=== PATIENT | female | born 1945 | race Caucasian/White ===

== ENCOUNTER → 2018-07-18 06:45 | Outpatient (CLI) | payer MEDICARE, OTHER, SELFPAY ==
--- NOTE | 2018-07-18 06:50 | ECHOD_ITS ---
Reason For Study: AFIB/FLUTTER Procedure This was a 2D Doppler, Color Flow transthoracic echocardiogram. The study was technically difficult. Exam performed in department. Left Ventricle Normal LV size. Left ventricular systolic function is normal. The estimated ejection fraction is 65 %. Unable to assess diastolic dysfunction. No regional wall motion abnormalities noted. Right Ventricle Normal RV size. Normal systolic function. Atria The left atrium is mildly enlarged. The right atrium is mildly enlarged. No doppler evidence for ASD. Mitral Valve There is mild mitral annular calcification. Extension of the mitral annular calcification onto the posterior mitral valve leaflet. Trivial mitral valve insufficiency. Tricuspid Valve Normal tricuspid valve. Trivial tricuspid valve insufficiency. Right ventricular systolic pressure estimated to be 27 mmHg. Aortic Valve Trisinus/trileaflet aortic valve. Mild diffuse aortic valve thickening. Mild diffuse aortic valve calcification. Mild aortic stenosis. Pulmonic Valve The pulmonic valve is not well visualized. Trivial pulmonic valve insufficiency. Great Vessels Normal sized aortic root. Pericardium/Pleural No pericardial effusion. MMode/2D Measurements & Calculations LVIDd: 4.5 cm IVSd: 1.6 cm LVOT diam: 2.1 cm LVIDs: 2.9 cm LVPWd: 1.2 cm LVOT area: 3.4 cm2 FS: 35.3 % Ao root diam: 3.4 cm LAV(MOD-bp): 83.8 ml LA A4 area: 25.0 cm2 LAV(MOD-bp) Indexed: 36.5 ml/m2 LAV(MOD-sp2): 77.8 ml LAV(MOD-sp4): 72.2 ml LA dimension(2D): 4.7 cm RA A4 area: 24.7 cm2 Doppler Measurements & Calculations MV E max ld: 110.1 cm/sec Ao V2 max: 213.6 cm/sec LV V1 max: 102.4 cm/sec Ao max P.3 mmHg LV V1 max P.2 mmHg Ao V2 mean: 148.6 cm/sec LV V1 mean P.3 mmHg Ao mean P.7 mmHg LV V1 mean: 72.3 cm/sec Ao V2 VTI: 35.7 cm LV V1 VTI: 18.9 cm MITCHEL(I,D): 1.8 cm2 MITCHEL(V,D): 1.6 cm2 SV(LVOT): 64.1 ml PA V2 max: 80.3 cm/sec TR max ld: 246.9 cm/sec TR max P.4 mmHg Interpretation Summary The study was technically difficult. Left ventricular systolic function is normal. The estimated ejection fraction is 65 %. The left atrium is mildly enlarged. The right atrium is mildly enlarged. There is mild mitral annular calcification. Extension of the mitral annular calcification onto the posterior mitral valve leaflet. Trivial mitral valve insufficiency. Trivial tricuspid valve insufficiency. Mild aortic stenosis. Trivial pulmonic valve insufficiency. Right ventricular systolic pressure estimated to be 27 mmHg. Unable to assess diastolic dysfunction. Ordering Physician: Gilberto Camacho Referring Physician: NO PCP Performed By: Rosita Connor, QUYNH, RVT
--- NOTE | 2018-07-18 09:05 | STRESSREP_ITS ---
Stress Test Report Date: 07/18/2018 Procedure: Pharmacologic stress nuclear imaging study Indications: Atrial fibrillation Consent: Per the patient Procedure: The patient underwent pharmacologic (Regadenoson) evaluation with a peak heart rate of 157 beats per minute (106 predicted maximal heart rate) and a peak blood pressure of 166/80 mmHg. The baseline ECG demonstrated atrial fibrillation; PVCs; nonspecific ST/T wave abnormality. The peak pharmacologic ECG demonstrated continued atrial fibrillation with continued nonspecific ST/T wave abnormality. There were occasional PVCs pretest and during recovery. There was no complaint of chest discomfort during pharmacologic infusion or recovery. The examination was discontinued secondary to completion of protocol. Impression: 1. Pharmacologic (Regadenoson) evaluation 2. Peak pharmacologic ECG with continued atrial fibrillation with continued nonspecific ST/T wave abnormality. 3. There were occasional PVCs pretest and during recovery. 4. Nuclear images pending Myocardial perfusion imaging study: Technique: The patient was injected with 14.6 millicuries of technetium 99m Cardiolite and subsequently rest SPECT Cardiolite nuclear imaging was obtained in the horizontal long, vertical long, and short axis views. The patient underwent pharmacologic (Regadenoson) evaluation with a peak heart rate of 157 beats per minute (106 % percent predicted maximal heart rate) and a peak blood pressure of 166/80 mmHg. The patient was injected with 44.8 millicuries of technetium 99m Cardiolite and subsequently stress SPECT Cardiolite nuclear imaging was obtained in the horizontal long, vertical long, and short axis views. A gated Cardiolite study at peak stress was obtained. Interpretation: Rest and stress SPECT Cardiolite nuclear imaging status post realignment, normalization, and attenuation correction demonstrate at rest the appearance of extracardiac/gastrointestinal tracer uptake near the inferior segments and otherwise relative uniform tracer uptake. Status post stress there is continued evidence of extracardiac/gastrointestinal tracer uptake as well as a notation of diminished tracer uptake in portions of the mid to distal anterior, anteroseptal, anterolateral, and anterior apical segments. There are similar type findings on the resting and stress polar map images. There is end systolic thickening and brightening. The gated Cardiolite study demonstrates myocardial thickening and inward wall motion. The reported LVEF is 72 %. Impression: 1. Rest and stress SPECT Cardiolite nuclear imaging demonstrate myocardial perfusion changes appearing compatible with stress-induced myocardial ischemia involving portions of the mid to distal anterior, anteroseptal, anterolateral, and anterior apical segments, however, an element of shifting soft tissue attenuation/artifact cannot necessarily be excluded. 2. The gated Cardiolite study reports an LVEF of 72 %. This note was generated with [employer] ([employer]ation software. It may contain incorrect words, spelling, and punctuation that were not noted in checking the note before signing.
== END ==
PROVIDERS: Referring Provider Internal Medicine Cardiovascular Disease; Visit Provider Internal Medicine Cardiovascular Disease
DX: I35.0 Nonrheumatic aortic (valve) stenosis (principal); I48.91 Unspecified atrial fibrillation; I48.92 Unspecified atrial flutter; I49.3 Ventricular premature depolarization; R94.31 Abnormal electrocardiogram [ECG] [EKG]
CPT/HCPCS: 78452; 93017; 93306; A9500; A4216; J2785

== ENCOUNTER → 2018-07-25 11:06 | Outpatient (CLI) | payer MEDICARE, OTHER, SELFPAY ==
--- NOTE | 2018-07-25 11:15 | RAD_ITS ---
STUDY: X-RAY CHEST REASON FOR EXAM: Female, 73 years old. atrial fibrillation, pre-heart cath TECHNIQUE: PA and lateral views of the chest. COMPARISON: None. FINDINGS: The lungs are clear and expanded. There is no demonstrated pleural abnormality. There is mild cardiac enlargement. Normal mediastinum and elenita. Normal visualized pulmonary arteries. There is atherosclerotic tortuosity of the aortic arch and descending thoracic aorta. There are diffuse degenerative changes of the visualized thoracic spine. Normal visualized ribs, clavicles, and shoulders. There is no demonstrated abnormality of the visualized soft tissue structures of the upper abdomen. RAD/Chest PA and Lateral IMPRESSION: Cardiomegaly with aortic tortuosity. No evidence of acute failure. No acute intrathoracic process. Electronically Signed: Bing Lopes MD at 10:44 EST , Service support ,
[2018-07-25 12:30] LABS: Hematocrit 49.4 % (37-47); Hemoglobin 15.7 g/dl (12.0-15.0); Mean Corp Hgb Conc 31.8 g/gl (32-36); Mean Corpuscular Hgb 28.9 pg (27.0-32.0); Mean Platelet Vol. 11.2 fl (6.2-12.0); Platelet Count 197 K/mm3 (150-450); RBC Distribution Width CV 14.2 % (11.6-14.6); RBC Distribution Width SD 47.3 fl (35.1-43.9); Red Blood Count 5.43 M/mm3 (4.2-5.4); White Blood Count 8.1 K/mm3 (4.4-11.0)
[2018-07-25 12:33] LABS: Scan Indicated on CBC? Y/N NO
[2018-07-25 12:37] LABS: Partial Thromboplast Time 27.5 Seconds (24.1-36.2); Prothrombin Time (Protime)PT. 12.9 SECONDS (11.7-14.9)
[2018-07-25 12:51] LABS: Anion Gap 7 (5-15); BUN 25 mg/dL (7-18); BUN/Creat Ratio 18.8 RATIO (10-20); Calcium,Total 9.5 mg/dL (8.5-10.1); Chloride 104 mmol/L (98-107); Creatinine, Serum 1.33 mg/dL (0.55-1.02); EST Glomerular Filtration Rate 42 mL/min (>60); Est Glom Filt Rate - Afr Amer 50 mL/min (>60); Glucose 117 mg/dL (74-106); Potassium 4.2 mmol/L (3.5-5.1); Sodium Level 137 mmol/L (136-145)
== END ==
PROVIDERS: Referring Provider Internal Medicine Cardiovascular Disease; Visit Provider Internal Medicine Cardiovascular Disease
DX: I35.0 Nonrheumatic aortic (valve) stenosis (principal); I48.91 Unspecified atrial fibrillation; I48.92 Unspecified atrial flutter; I49.3 Ventricular premature depolarization; R94.39 Abnormal result of other cardiovascular function study
CPT/HCPCS: 36415; 71046; 80048; 85027; 85610; 85730

== ENCOUNTER 2018-08-01 07:58 | Day surgery (SDC) | payer MEDICARE, OTHER, SELFPAY ==
[2018-07-31 08:49] VITALS: BMI 44.5
--- NOTE | 2018-08-01 08:26 | PCM.HP.CAR ---
Problem List (1) Abnormal stress test Status: Acute (2) Nonrheumatic aortic (valve) stenosis Status: Chronic (3) Atrial fibrillation and flutter Status: Chronic (4) Premature ventricular contraction Status: Acute (5) Hyperlipemia Status: Chronic Qualifiers: (6) Essential hypertension Status: Chronic History of Present Illness Date of Admission: 08/01/18 The patient is a 73 year old white female with a past cardiovascular history which has included aortic valve stenosis, atrial fibrillation/flutter, PVCs, hyperlipidemia, hypertension who is now referred for evaluation of an abnormal pharmacologic stress nuclear imaging study concerning for myocardial ischemia for further evaluation with diagnostic cardiac catheterization. The patient was originally evaluated in the outpatient area for cardiovascular consultation on 06/29/2018 to establish care. Since that time she is undergone further evaluation with transthoracic echocardiogram and a pharmacologic stress nuclear imaging study. Her transthoracic echocardiogram has demonstrated the left ventricle to be normal with an LVEF of 65%, mild biatrial enlargement, mild mitral annular calcification, trivial MR/TR, mild aortic valve stenosis, trivial MS, and an estimated RV systolic pressure of 27 mmHg. She underwent a pharmacologic stress nuclear imaging study. There were concerns of stress-induced myocardial ischemia involving portions of the mid to distal anterior, anteroseptal, anterolateral, and anteroapical segments however an element of shifting soft tissue attenuation/artifact cannot necessarily be excluded. Her gated LVEF was 72%. At the present time she states she feels well. She denies any ongoing symptoms of classic angina pectoris or overt episodes of CHF or pulmonary edema. There is been no near syncope or syncope. She continues to be unaware of her atrial dysrhythmia. She had a previous ECG in the outpatient setting. At that time she was in atrial fibrillation with low voltage QRS in the limb leads and nonspecific ST segment abnormality. [] Past Medical History Allergies/Adverse Reactions: Allergies bacitracin [From Neosporin ([id number])] Allergy (Severe, Verified 07/31/18 08:53) Blisters erythromycin base Allergy (Severe, Verified 07/31/18 08:53) Rash neomycin [From Neosporin ([id number])] Allergy (Severe, Verified 07/31/18 08:53) Blisters polymyxin B [From Neosporin ([id number])] Allergy (Severe, Verified 07/31/18 08:53) Blisters sulfamethoxazole [From Bactrim] Allergy (Severe, Verified 07/31/18 08:53) Rash trimethoprim [From Bactrim] Allergy (Severe, Verified 07/31/18 08:53) Rash Home Medications: Ambulatory Orders Medication Instructions Recorded antiarthritic combination no.2 900 900 mg PO DAILY tab 06/28/18 mg tablet cinnamon bark 500 mg capsule 1,000 mg PO DAILY cap 06/28/18 furosemide 20 mg tablet 20 mg PO DAILY 06/28/18 ibuprofen 200 mg tablet 200 mg PO TID-QID PRN 06/28/18 lisinopril 20 mg tablet 20 mg PO DAILY 06/28/18 lutein 20 mg tablet 20 mg PO DAILY 06/28/18 multivit with 1 tab PO DAILY 06/28/18 gqywvtaw-qvhq-RH-lutein 8 mg iron-400 mcg-300 mcg tablet spironolactone 25 mg tablet 25 mg PO DAILY 06/28/18 cholecalciferol (vitamin D3) 1,000 500 unit PO BID tab 06/29/18 unit tablet metoprolol tartrate 50 mg tablet 50 mg PO BID #180 tab 06/29/18 aspirin 81 mg tablet,delayed 81 mg PO DAILY 07/18/18 release clopidogrel 75 mg tablet 75 mg PO DAILY #30 tab 07/25/18 Past Medical History (Chronic Problems): Chronic Problems (Last Updated 07/19/18 @ 09:07 by Inessa Israel) Atrial fibrillation and flutter (Chronic) Hyperlipemia (Chronic) Nonrheumatic aortic (valve) stenosis (Chronic) Essential hypertension (Chronic) Surgical History: - - Status post remote melanoma excision Smoking Status: Never smoker Tobacco Use: Non-smoker Alcohol: None Drugs: None Review of Systems - Review of Systems General: Denies: Fever, Night Sweats, Fatigue Cardiovascular: Denies: Chest Discomfort, Shortness of Breath, Orthopnea, PND, Peripheral Edema, Palpitations, Lightheadedness, Dizziness, Near Syncope, Syncope Respiratory: Denies: Cough, Sputum Production, Hemoptysis Gastrointestinal: Denies: Hematemesis, Hematochezia, Melena Genitourinary: Denies: Dysuria, Hematuria Skin: Denies: Rash Subjectve: This is a pleasant 73-year-old white female who appears to be resting comfortably at the moment in no acute distress. Objective: Weight: 276 lb Body Mass Index (BMI) 44.5 General: Awake, Alert, Oriented x 3, Cooperative, No Acute Distress, Obese HEENT: Atraumatic, Normocephalic, PERRL, EOMI, Sclera Non Icteric Oral: Moist Mucosa Neck: Supple, Good ROM, No JVD Lungs: Clear to auscultation Cardiovascular: Irregular Rhythm, Normal S1, Normal S2 Murmur Murmur: Grade 2/6, Soft, Mid Systolic, LLSB, LVOT, Sternal Notch Vascular: No Carotid Bruits Abdomen: Bowel Sounds Present, Soft, Non Tender, Obese Extremities: No Cyanosis, No Clubbing, No edema Neurological: No Focal Motor or Sensory Deficit Psych/Mental Status: Appropriate, Normal Affect VTE Information - Inpt Only VTE Present on Admission: No VTE Mechan Device Prophylaxis: None VTE Pharm Prophylaxis ordered?: No Reason prophylaxis not ordered:: Treatment Not Indicated Rhythm: As noted above EKG: As noted above ECHO: As noted above Stress Test: As noted above CXR: Preliminary evaluation: No acute cardiopulmonary disease process appreciated: Please see official report Assessment/Plan 1. Abnormal pharmacologic stress nuclear imaging study At the present time it is been recommended patient undergo further evaluation and care. This will include a diagnostic cardiac catheterization. The procedure and risks were discussed with her. She was agreeable to this approach. 2. Aortic valve stenosis Patient does have a history of aortic valve stenosis. An attempt will be made to perform a right/left cardiac catheterization to gain more information about her aortic valve. 3. Atrial fibrillation/flutter The patient will continue rate control therapy. Status post evaluation of her case, as previously noted, consideration will be given to anticoagulant therapy. Over time she can be considered for further evaluation and care with possible attempts at regaining sinus rhythm with medical management and synchronized biphasic DC cardioversion. 4. 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 She will continue medical management and follow-up. 5. Hyperlipidemia The patient will continue further evaluation and care as deemed appropriate. 6. Hypertension The patient will continue medical management with adjustment as needed. Comment: The above was discussed and reviewed with the patient. She was agreeable with the aforementioned evaluation and care plan. This note was generated with [employer] dictation software. It may contain incorrect words, spelling, and punctuation that were not noted in checking the note before signing.
--- NOTE | 2018-08-01 08:30 | HP.PCM_ITS ---
Problem List (1) Abnormal stress test Status: Acute (2) Nonrheumatic aortic (valve) stenosis Status: Chronic (3) Atrial fibrillation and flutter Status: Chronic (4) Premature ventricular contraction Status: Acute (5) Hyperlipemia Status: Chronic Qualifiers: (6) Essential hypertension Status: Chronic History of Present Illness Date of Admission: 08/01/18 The patient is a 73 year old white female with a past cardiovascular history which has included aortic valve stenosis, atrial fibrillation/flutter, PVCs, hyperlipidemia, hypertension who is now referred for evaluation of an abnormal pharmacologic stress nuclear imaging study concerning for myocardial ischemia for further evaluation with diagnostic cardiac catheterization. The patient was originally evaluated in the outpatient area for cardiovascular consultation on 06/29/2018 to establish care. Since that time she is undergone further evaluation with transthoracic echocardiogram and a pharmacologic stress nuclear imaging study. Her transthoracic echocardiogram has demonstrated the left ventricle to be normal with an LVEF of 65%, mild biatrial enlargement, mild mitral annular calcification, trivial MR/TR, mild aortic valve stenosis, trivial FL, and an estimated RV systolic pressure of 27 mmHg. She underwent a pharmacologic stress nuclear imaging study. There were concerns of stress-induced myocardial ischemia involving portions of the mid to distal anterior, anteroseptal, anterolateral, and anteroapical segments however an element of shifting soft tissue attenuation/artifact cannot necessarily be excluded. Her gated LVEF was 72%. At the present time she states she feels well. She denies any ongoing symptoms of classic angina pectoris or overt episodes of CHF or pulmonary edema. There is been no near syncope or syncope. She continues to be unaware of her atrial dysrhythmia. She had a previous ECG in the outpatient setting. At that time she was in atrial fibrillation with low voltage QRS in the limb leads and nonspecific ST segment abnormality. [] Past Medical History Allergies/Adverse Reactions: Allergies bacitracin [From Neosporin ([id number])] Allergy (Severe, Verified 07/31/18 08:53) Blisters erythromycin base Allergy (Severe, Verified 07/31/18 08:53) Rash neomycin [From Neosporin ([id number])] Allergy (Severe, Verified 07/31/18 08:53) Blisters polymyxin B [From Neosporin ([id number])] Allergy (Severe, Verified 07/31/18 08:53) Blisters sulfamethoxazole [From Bactrim] Allergy (Severe, Verified 07/31/18 08:53) Rash trimethoprim [From Bactrim] Allergy (Severe, Verified 07/31/18 08:53) Rash Home Medications: Ambulatory Orders Medication Instructions Recorded antiarthritic combination no.2 900 900 mg PO DAILY tab 06/28/18 mg tablet cinnamon bark 500 mg capsule 1,000 mg PO DAILY cap 06/28/18 furosemide 20 mg tablet 20 mg PO DAILY 06/28/18 ibuprofen 200 mg tablet 200 mg PO TID-QID PRN 06/28/18 lisinopril 20 mg tablet 20 mg PO DAILY 06/28/18 lutein 20 mg tablet 20 mg PO DAILY 06/28/18 multivit with 1 tab PO DAILY 06/28/18 whchbbeh-jwoo-QN-lutein 8 mg iron-400 mcg-300 mcg tablet spironolactone 25 mg tablet 25 mg PO DAILY 06/28/18 cholecalciferol (vitamin D3) 1,000 500 unit PO BID tab 06/29/18 unit tablet metoprolol tartrate 50 mg tablet 50 mg PO BID #180 tab 06/29/18 aspirin 81 mg tablet,delayed 81 mg PO DAILY 07/18/18 release clopidogrel 75 mg tablet 75 mg PO DAILY #30 tab 07/25/18 Past Medical History (Chronic Problems): Chronic Problems (Last Updated 07/19/18 @ 09:07 by Inessa Israel) Atrial fibrillation and flutter (Chronic) Hyperlipemia (Chronic) Nonrheumatic aortic (valve) stenosis (Chronic) Essential hypertension (Chronic) Surgical History: - - Status post remote melanoma excision Smoking Status: Never smoker Tobacco Use: Non-smoker Alcohol: None Drugs: None Review of Systems - Review of Systems General: Denies: Fever, Night Sweats, Fatigue Cardiovascular: Denies: Chest Discomfort, Shortness of Breath, Orthopnea, PND, Peripheral Edema, Palpitations, Lightheadedness, Dizziness, Near Syncope, Syncope Respiratory: Denies: Cough, Sputum Production, Hemoptysis Gastrointestinal: Denies: Hematemesis, Hematochezia, Melena Genitourinary: Denies: Dysuria, Hematuria Skin: Denies: Rash Subjectve: This is a pleasant 73-year-old white female who appears to be resting comfortably at the moment in no acute distress. Objective: Weight: 276 lb Body Mass Index (BMI) 44.5 General: Awake, Alert, Oriented x 3, Cooperative, No Acute Distress, Obese HEENT: Atraumatic, Normocephalic, PERRL, EOMI, Sclera Non Icteric Oral: Moist Mucosa Neck: Supple, Good ROM, No JVD Lungs: Clear to auscultation Cardiovascular: Irregular Rhythm, Normal S1, Normal S2 Murmur Murmur: Grade 2/6, Soft, Mid Systolic, LLSB, LVOT, Sternal Notch Vascular: No Carotid Bruits Abdomen: Bowel Sounds Present, Soft, Non Tender, Obese Extremities: No Cyanosis, No Clubbing, No edema Neurological: No Focal Motor or Sensory Deficit Psych/Mental Status: Appropriate, Normal Affect VTE Information - Inpt Only VTE Present on Admission: No VTE Mechan Device Prophylaxis: None VTE Pharm Prophylaxis ordered?: No Reason prophylaxis not ordered:: Treatment Not Indicated Rhythm: As noted above EKG: As noted above ECHO: As noted above Stress Test: As noted above CXR: Preliminary evaluation: No acute cardiopulmonary disease process appreciated: Please see official report Assessment/Plan 1. Abnormal pharmacologic stress nuclear imaging study At the present time it is been recommended patient undergo further evaluation and care. This will include a diagnostic cardiac catheterization. The procedure and risks were discussed with her. She was agreeable to this approach. 2. Aortic valve stenosis Patient does have a history of aortic valve stenosis. An attempt will be made to perform a right/left cardiac catheterization to gain more information about her aortic valve. 3. Atrial fibrillation/flutter The patient will continue rate control therapy. Status post evaluation of her case, as previously noted, consideration will be given to anticoagulant therapy. Over time she can be considered for further evaluation and care with possible attempts at regaining sinus rhythm with medical management and synchronized biphasic DC cardioversion. 4. 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 She will continue medical management and follow-up. 5. Hyperlipidemia The patient will continue further evaluation and care as deemed appropriate. 6. Hypertension The patient will continue medical management with adjustment as needed. Comment: The above was discussed and reviewed with the patient. She was agreeable with the aforementioned evaluation and care plan. This note was generated with [employer] dictation software. It may contain incorrect words, spelling, and punctuation that were not noted in checking the note before signing.
[2018-08-01 11:00] LABS: Base Excess -2 mmol/L (-2 to +2); Bicarbonate 22.9 mmol/L (22-26); Blood Gas Specimen Type ART; PO2 76 mmHG (75-100); SO2 95 % (95-99); Total Carbon Dioxide 24 mmol/L; pCO2 37.6 mmHg (35-45); pH 7.39 (7.35-7.45)
--- NOTE | 2018-08-01 13:34 | CL.D_ITS ---
Patient Name: AUSTIN HERRERA Study Date: 08/01/2018 Performing: Gilberto Camacho MD Ht: 66.14 inches 168 cm : 1945 Wt: 275.58 lbs 125 kg Age: 73 Gender: female BSA: 2.3 PROCEDURE(S) PERFORMED [id number] CLINICAL PROFILE AND INDICATIONS Indications: Suspected CAD Heart Failure: None Stress/Imaging Stress Test w/SPECT MPI: Yes Result: PositiveStress Test with SPECT MPI: Positive Angina Classification Anginal Classification w/in 2 Weeks: No symptoms CAD Presentations: No Sxs, no angina. CONCLUSIONS [place] Multivessel CAD Mitral Valve Annular Calcification Moderate annular calcification RECOMMENDATIONS Risk factor modification Medical therapy DESCRIPTION OF PROCEDURE The patient arrived to the procedure lab. The risks and benefits of the procedure as well as a full d escription of our services here and current unavailability of surgical backup were fully explained to the patient and/or their significant other prior to the catheterization. The Timeout was completed, verifying the correct patient and procedure. The patient's procedural site was prepped and draped in the usual fashion. Local anesthetic was given subcutaneously to right radial region with Lidocaine 2% . Using a modified Seldinger technique, arterial access was obtained via the right radial artery, a 6 Fr sheath was inserted. Left Coronary Artery selective angiography was performed in multiple views u sing a 5 Fr. 4.0 [place] catheter. Right Coronary Artery selective angiography was then performed in mu ltiple views using a 5 Fr. JR 4 catheter. Right Coronary Artery selective angiography was then perfor med in multiple views using a 5 Fr. JR 4 catheter.The arterial sheath was pulled and a TR Band was applied for hemostasis CORONARY ANGIOGRAPHY DOMINANCE: Right Dominant LEFT HEART ASSESSMENT Left Ventricular Ejection Fraction: Not assessed LEFT MAIN: Angiographically normal LEFT ANTERIOR DECENDING ARTERY: Mild luminal irregularities DISTAL LAD: 10-25 % Stenosis CIRCUMFLEX ARTERY: PROX CIRC: Mild luminal irregularities OM 1: Proximal - Eccentric: 25 % Stenosis RIGHT CORONARY ARTERY: Mild luminal irregularities VALVE FINDINGS: Mitral Valve Annular Calcification Moderate COMPLICATIONS No Complications PROCEDURE MEDICATIONS Fentanyl 50 mcg IV Versed 1 mg IV Fentanyl 50 mcg IV Versed 1 mg IV Fentanyl 50 mcg IV Heparin diluted in 23cc Heparinized saline. Patient given 10cc IA of this solution. 08/01/2018 09:45 :43 Verapamil 2.5mg, Ntg 100mcgs, 2000 units of Heparin diluted in 23cc Heparinized saline. Patient give n 10cc IA of this solution. 08/01/2018 09:45:43 SUMMARY OF HEMODYNAMIC DATA Time AIR REST ECG 08:32:15 ECG 09:31:16 AO 99/63 (79) SA 09:59:18 AO 112/76 (92) 10:24:39 Label % O2 Pres/Loc Time AIR REST AO 95 PV 09:51:30 Signed By Gilberto Camacho MD On 08/01/2018 1:33:56 PM Gilberto Camacho MD
== END 2018-08-01 14:30 | disposition home or self-care (01) ==
LOC: CLSP 07:59
PROVIDERS: Referring Provider Internal Medicine Cardiovascular Disease; Visit Provider Internal Medicine Cardiovascular Disease
DX: I25.10 Atherosclerotic heart disease of native coronary artery without angina pectoris (principal); R94.39 Abnormal result of other cardiovascular function study; I48.2 Chronic atrial fibrillation; I48.92 Unspecified atrial flutter; E78.5 Hyperlipidemia, unspecified; I10 Essential (primary) hypertension; I35.0 Nonrheumatic aortic (valve) stenosis; E66.9 Obesity, unspecified; Z68.41 Body mass index [BMI] 40.0-44.9, adult
CPT/HCPCS: 82803; 93454; 99152; 99153; J7040; Q9967; C1751; C1769; C1894

== ENCOUNTER → 2018-09-21 10:41 | Outpatient (CLI) | payer MEDICARE, OTHER, SELFPAY ==
[2018-08-30 13:58] VITALS: BMI 45.5
[2018-09-21 12:34] LABS: BUN 23 mg/dL (7-18); Creatinine, Serum 1.23 mg/dL (0.55-1.02); Glucose 124 mg/dL (74-106)
[2018-09-21 12:35] LABS: Anion Gap 13 (5-15); BUN/Creat Ratio 18.7 RATIO (10-20); Calcium,Total 9.4 mg/dL (8.5-10.1); Chloride 104 mmol/L (98-107); EST Glomerular Filtration Rate 46 mL/min (>60); Est Glom Filt Rate - Afr Amer 55 mL/min (>60); Potassium 4.3 mmol/L (3.5-5.1); Sodium Level 140 mmol/L (136-145)
== END ==
PROVIDERS: Referring Provider Internal Medicine Cardiovascular Disease; Visit Provider Internal Medicine Cardiovascular Disease
DX: I48.91 Unspecified atrial fibrillation (principal); I48.92 Unspecified atrial flutter
CPT/HCPCS: 36415; 80048

== ENCOUNTER 2018-09-26 10:41 | Day surgery (SDC) | payer MEDICARE, OTHER, SELFPAY ==
[2018-08-30 13:58] VITALS: BMI 45.5
[2018-09-25 14:24] VITALS: BMI 45.5
--- NOTE | 2018-09-26 16:24 | PCM.OP.BLANK ---
Problem List (1) Atrial fibrillation Status: Acute Operative Report Date of Procedure: 09/26/18 Date: 09/26/2017 Procedure: Synchronized biphasic DC cardioversion Indications: Atrial fibrillation Consent: Per the patient Premedications: Per Dr. Long You of pulmonology and critical care medicine with propofol 70 mg IV push total Procedure: Synchronized biphasic DC cardioversion: 200 joules x1: Results: Sinus rhythm Complications: No apparent complications This note was generated using a voice recognition system and there may be incorrect words, spelling or punctuation that were not noted when reviewing the office note prior to saving.
--- NOTE | 2018-09-26 16:57 | OP.PCM_ITS ---
Problem List (1) Atrial fibrillation Status: Acute Qualifiers: Atrial fibrillation type: chronic Qualified Code(s): I48.2 - Chronic atrial fibrillation (2) Atrial flutter Status: Acute (3) Essential hypertension Status: Chronic (4) Hyperlipemia Status: Chronic Qualifiers: Hyperlipidemia type: unspecified Qualified Code(s): E78.5 - Hyperlipidemia, unspecified (5) Nonrheumatic aortic (valve) stenosis Status: Chronic Operative Report Date of Procedure: 09/26/18 - Conscious sedation CONSCIOUS SEDATION REPORT BRIEF HISTORY OF PRESENT ILLNESS: The patient is a 73-year-old female who presented to [facility] for an elective outpatient cardioversion due to underlying atrial fibrillation. The patient reports no PO intake since midnight. The patient does not have a history of obstructive sleep apnea. The patient reports no history of smoking and COPD. The patient denies any recent constitutional symptoms such as fevers, chills, nausea or vomiting. The patient denies previous anesthetic complications. PHYSICAL EXAMINATION: VITAL SIGNS: Reviewed and were acceptable. GENERAL: The patient is a female, in no apparent distress, speaking in full sentences. HEENT: Normocephalic, atraumatic. Mucous membranes are moist and pink. Good mouth opening noted. Trachea is midline. Good neck mobility. MP III CHEST: S1, S2 irregularly irregular. No murmurs, rubs or gallops were noted. LUNGS: Clear to auscultation bilaterally without appreciable wheezes, rales or rhonchi. ABDOMEN: Soft, nontender, nondistended. Positive bowel sounds. EXTREMITIES: There is no clubbing, cyanosis or edema. ASA Class: II DESCRIPTION OF PROCEDURE: After confirmation of informed consent, the patient's anesthesia plan was reviewed in detail. Propofol was chosen. Risks and benefits were reviewed and the patient agreed to proceed. At 12:59 PM, the patient was given 40 mg of propofol. The patient required a total of 70 mg of propofol throughout the procedure to achieve appropriate sedation. The patient achieved an appropriate level of sedation and received 1 attempt s synchronized cardioversion, at [address] Camacho at the bedside. This was successful in achieving normal sinus rhythm. The patient was monitored until 1:12 PM, at which time the patient reached their baseline mental status and function. The patient tolerated the procedure well. COMPLICATIONS: None ESTIMATED BLOOD LOSS: None RECOMMENDATIONS: Okay to recover in usual fashion. Code Visit [id number]: Other Procedure See Report - 49870 -13 minutes of conscious sedation
== END 2018-09-26 14:05 | disposition home or self-care (01) ==
LOC: CLSP 10:44
PROVIDERS: Referring Provider Internal Medicine Cardiovascular Disease; Visit Provider Internal Medicine Cardiovascular Disease
DX: I48.91 Unspecified atrial fibrillation (principal); I48.92 Unspecified atrial flutter; E78.5 Hyperlipidemia, unspecified; I10 Essential (primary) hypertension; I35.0 Nonrheumatic aortic (valve) stenosis; R05 Cough; I25.10 Atherosclerotic heart disease of native coronary artery without angina pectoris
CPT/HCPCS: 92960; 93005; J7040

== ENCOUNTER → 2018-10-03 11:19 | Outpatient (CLI) | payer MEDICARE, OTHER, SELFPAY ==
[2018-09-25 14:24] VITALS: BMI 45.5
== END ==
PROVIDERS: Referring Provider Internal Medicine Cardiovascular Disease; Visit Provider Internal Medicine Cardiovascular Disease
DX: I49.3 Ventricular premature depolarization (principal); I48.91 Unspecified atrial fibrillation; I48.92 Unspecified atrial flutter
CPT/HCPCS: 93225; 93226

== ENCOUNTER → 2019-02-16 10:41 | Outpatient (CLI) | payer MEDICARE, OTHER, SELFPAY ==
[2019-02-14 11:05] VITALS: BMI 45.5
== END ==
PROVIDERS: Referring Provider Internal Medicine Cardiovascular Disease; Visit Provider Internal Medicine Cardiovascular Disease
DX: I48.91 Unspecified atrial fibrillation (principal)
CPT/HCPCS: 93225; 93226

== ENCOUNTER → 2020-11-25 12:37 | Outpatient (CLI) | payer MEDICARE, OTHER, SELFPAY ==
[2020-11-12 10:02] VITALS: BMI 51.0
--- NOTE | 2020-11-25 12:40 | ECHOCS_ITS ---
Reason For Study: MURMUR Procedure This was a 2D Doppler, Color Flow transthoracic echocardiogram. The study was technically difficult. Contrast injection was performed. Exam performed in department. Left Ventricle Normal LV size. Left ventricular systolic function is normal. The estimated ejection fraction is 60 %. Unable to assess diastolic dysfunction. No regional wall motion abnormalities noted. Right Ventricle Normal RV size. Normal systolic function. Atria The left atrium is moderately enlarged. The right atrium is mildly enlarged. No doppler evidence for ASD. Mitral Valve There is mild to moderate mitral annular calcification. Extension of the mitral annular calcification onto the posterior mitral valve leaflet. Trivial mitral valve insufficiency. Tricuspid Valve Normal tricuspid valve. Trivial tricuspid valve insufficiency. Right ventricular systolic pressure estimated to be 26 mmHg. Aortic Valve The aortic valve is not well visualized. Mild diffuse aortic valve thickening. Mild diffuse aortic valve calcification. Mild aortic stenosis. Pulmonic Valve The pulmonic valve is not well visualized. Great Vessels Normal sized aortic root. Pericardium/Pleural No pericardial effusion. Medication 22 gauge I.V. with prn adaptor inserted into right arm. Diluted definity 6ml given slow IV push to enhance endocardial definition. MMode/2D Measurements & Calculations LVIDd: 4.1 cm IVSd: 1.2 cm LVOT diam: 2.0 cm LVIDs: 2.9 cm LVPWd: 1.0 cm RVDd: 3.9 cm FS: 29.4 % LVOT area: 3.1 cm2 Ao root diam: 3.3 cm LAV(MOD-bp): 46.6 ml LVAd ap4: 24.0 cm2 LAV(MOD-bp) Indexed: 19.4 ml/m2 EDV(MOD-sp4): 63.3 ml LAV(MOD-sp2): 30.6 ml EDV(sp4-el): 67.5 ml LAV(MOD-sp4): 57.1 ml LVAs ap4: 14.5 cm2 ESV(MOD-sp4): 28.9 ml ESV(sp4-el): 29.9 ml EF(MOD-sp4): 54.3 % EF(sp4-el): 55.7 % SV(MOD-sp4): 34.4 ml SV(sp4-el): 37.6 ml LA A4 area: 22.3 cm2 LA dimension(2D): 3.7 cm RA A4 area: 20.3 cm2 Doppler Measurements & Calculations MV E max ld: 96.0 cm/sec Ao V2 max: 207.1 cm/sec LV V1 max: 77.3 cm/sec Ao max P.2 mmHg LV V1 max P.4 mmHg Ao V2 mean: 156.7 cm/sec LV V1 mean P.4 mmHg Ao mean P.0 mmHg LV V1 mean: 55.2 cm/sec Ao V2 VTI: 42.2 cm LV V1 VTI: 17.6 cm MITCHEL(I,D): 1.3 cm2 MITCHEL(V,D): 1.2 cm2 SV(LVOT): 55.2 ml PA V2 max: 60.6 cm/sec TR max ld: 240.6 cm/sec TR max P.1 mmHg Interpretation Summary The study was technically difficult. Contrast injection was performed. Left ventricular systolic function is normal. The estimated ejection fraction is 60 %. The left atrium is moderately enlarged. The right atrium is mildly enlarged. There is mild to moderate mitral annular calcification. Extension of the mitral annular calcification onto the posterior mitral valve leaflet. Trivial mitral valve insufficiency. Trivial tricuspid valve insufficiency. Mild aortic stenosis. Right ventricular systolic pressure estimated to be 26 mmHg. Unable to assess diastolic dysfunction. Ordering Physician: Gilberto Camacho Referring Physician: Gilberto Camacho Performed By: Jia Vanessa, QUYNH
== END ==
PROVIDERS: Referring Provider Internal Medicine Cardiovascular Disease; Visit Provider Internal Medicine Cardiovascular Disease
DX: R01.1 Cardiac murmur, unspecified (principal); I35.0 Nonrheumatic aortic (valve) stenosis
CPT/HCPCS: 93306; Q9957; A4216; C8929

== ENCOUNTER → 2021-05-11 10:56 | Outpatient (CLI) | payer MEDICARE, OTHER, SELFPAY ==
[2021-05-11 11:26] LABS: Absolute Lymphocyte Count 1.43 X10^3/uL (0.83-4.51); Absolute Neutrophil Count 6.4 X10^3/uL (2.0-7.7); Basophil# 0.06 X10^3/uL; Basophil% 0.7 % (0-1); Eosinophils% 1.2 % (0-5); Hematocrit 50.3 % (37-47); Hemoglobin 15.7 g/dL (12.0-15.0); Lymphocyte # 1.43 X10^3/ul (0.83-4.51); Lymphocyte % 16.8 % (19-41); Mean Corp Hgb Conc 31.2 g/dL (32-36); Mean Corpuscular Hgb 29.3 pg (27.0-32.0); Mean Platelet Vol. 10.7 fl (6.2-12.0); Monocyte# 0.49 X10^3/uL; Monocyte% 5.8 % (0-10); NRBC Flagged by Analyzer 0 % (0-5); Neutrophil # 6.38 X10^3/uL (2.7-7.7); Platelet Count 216 K/mm3 (150-450); RBC Distribution Width CV 13.7 % (11.6-14.6); RBC Distribution Width SD 47.7 fl (35.1-43.9); Red Blood Count 5.35 M/mm3 (4.2-5.4); White Blood Count 8.5 K/mm3 (4.4-11.0)
[2021-05-11 11:49] LABS: BNP,B-Type NATRIURETIC PEPTIDE 50.8 pg/mL (0-100)
[2021-05-11 11:54] LABS: Anion Gap 4 (5-15); BUN 22 mg/dL (7-18); BUN/Creat Ratio 16.7 RATIO (10-20); Calcium,Total 10.1 mg/dL (8.5-10.1); Chloride 104 mmol/L (98-107); Creatinine, Serum 1.32 mg/dL (0.55-1.02); EST Glomerular Filtration Rate 42 mL/min (>60); Est Glom Filt Rate - Afr Amer 50 mL/min (>60); Glucose 186 mg/dL (74-106); Potassium 4.4 mmol/L (3.5-5.1); Sodium Level 137 mmol/L (136-145)
== END ==
PROVIDERS: Referring Provider Nurse Practitioner Family; Visit Provider Nurse Practitioner Family
DX: R06.00 Dyspnea, unspecified (principal); I25.10 Atherosclerotic heart disease of native coronary artery without angina pectoris; I48.91 Unspecified atrial fibrillation; I48.92 Unspecified atrial flutter; I35.0 Nonrheumatic aortic (valve) stenosis; I10 Essential (primary) hypertension; I49.3 Ventricular premature depolarization
CPT/HCPCS: 36415; 80048; 83880; 85025

== ENCOUNTER 2022-03-18 14:22 | Emergency (ER) | payer MEDICARE, OTHER, SELFPAY ==
[2022-03-18 14:23] VITALS: BP 175/105; PULSE 106; RESP 20; TEMP 35.9; O2SAT 88; BMI 47.7
[2022-03-18 14:33] VITALS: O2SAT 97
[2022-03-18 14:36] VITALS: BP 144/91; PULSE 115; RESP 20; TEMP 35.9; O2SAT 98
--- NOTE | 2022-03-18 14:41 | EKG12_ITS ---
Test Reason : SOB Blood Pressure : / mmHG Vent. Rate : 105 BPM Atrial Rate : 227 BPM P-R Int : 000 ms QRS Dur : 072 ms QT Int : 332 ms P-R-T Axes : 000 074 056 degrees QTc Int : 438 ms Atrial fibrillation Nonspecific ST abnormality Abnormal ECG Confirmed by SG MANCERA, ALINE ([id number]), online editor ALESSANDRO MATAMOROS ([id number]) on 03/23/2022 10:16:58 AM Referred By: JEANNIE Confirmed By:ALINE BETTENCOURT MD
--- NOTE | 2022-03-18 14:41 | EX.ED.DYSGE1 ---
HPI <LEILANI Russ - Last Filed: 03/18/22 15:01> History of Present Illness Chief Complaint: Shortness of Breath Narrative Narrative: 77-year-old female with history of atrial fibrillation on Eliquis, hypertension, hyperlipidemia, on Lasix presents to the emergency department with 4 days of generalized fatigue, increased shortness of breath, cough. Patient states that on Tuesday and Tuesday of this last week he had fever she had fever and chills, today, she did not have any fever or chills however she has a cough and increased shortness of breath. Patient states last evening she had difficulty sleeping due to being short of breath. Patient was 88% on arrival here after walking. Patient denies any nausea or vomiting. PFS <LEILANI Russ - Last Filed: 03/18/22 15:01> [facility] Medical History (Updated 03/18/22 @ 16:[address] Ren Whitt MD) Abnormal stress test Atherosclerotic heart disease of three affiliated coronary artery without angina pectoris Atrial fibrillation and flutter Essential hypertension History of glaucoma Hyperlipemia Nonrheumatic aortic (valve) stenosis Premature atrial contraction Premature ventricular contraction Home Medications antiarthritic combination no.2 900 mg tablet (glucosamine-chondroitin) 900 mg PO DAILY 06/28/18 [History Last Taken Unknown] ibuprofen 200 mg tablet 200 mg PO TID-QID PRN Pain 06/28/18 [History Last Taken Unknown] lutein 20 mg tablet 20 mg PO DAILY 06/28/18 [History Last Taken Unknown] multivit with [id number] 8 mg iron-400 mcg-300 mcg tablet (Centrum Silver Women) 1 tab PO DAILY 06/28/18 [History Last Taken Unknown] cholecalciferol (vitamin D3) 25 mcg (1,000 unit) tablet 500 unit PO BID 06/29/18 [History Last Taken Unknown] aspirin 81 mg tablet,delayed release (Adult Low Dose Aspirin) 81 mg PO DAILY 07/18/18 [History Last Taken 09/26/18] omega-3 fatty acids 1,000 mg capsule (Fish Oil Concentrate) 1,000 mg PO BID 08/30/18 [History Last Taken Unknown] furosemide 20 mg tablet 20 mg PO DAILY #90 tabs 12/29/21 [Rx Last Taken Unknown] lisinopril 20 mg tablet 20 mg PO DAILY #90 tabs 12/29/21 [Rx Last Taken Unknown] metoprolol tartrate 50 mg tablet 50 mg PO BID #180 tabs 12/29/21 [Rx Last Taken Unknown] spironolactone 25 mg tablet 25 mg PO DAILY #90 tabs 12/29/21 [Rx Last Taken Unknown] albuterol sulfate 90 mcg/actuation aerosol inhaler (Ventolin HFA) 1 - 2 puff inhalation Q4H PRN PRN Wheezing ##1 03/18/22 [Rx Last Taken Unknown] apixaban 5 mg tablet (Eliquis) 2.5 mg PO BID #60 tabs 03/18/22 [Rx Last Taken Unknown] nirmatrelvir 300 mg (150 mg x 2)-ritonavir 100 mg tablet (EUA) (Paxlovid 300 mg () See Rx Instructions PO .COMPLEX #30 tabs 03/18/22 [Rx Last Taken Unknown] Allergy/AdvReac Type Severity Reaction Status Date / Time bacitracin Allergy Severe Blisters Verified 03/18/22 14:23 [From Neosporin ([id number])] erythromycin base Allergy Severe Rash Verified 03/18/22 14:23 neomycin Allergy Severe Blisters Verified 03/18/22 14:23 [From Neosporin ([id number])] polymyxin B Allergy Severe Blisters Verified 03/18/22 14:23 [From Neosporin ([id number])] sulfamethoxazole Allergy Severe Rash Verified 03/18/22 14:23 [From Bactrim] trimethoprim [From Bactrim] Allergy Severe Rash Verified 03/18/22 14:23 Family History Mother Congestive heart failure Father CAD (coronary artery disease) Myocardial infarction Surgical History History of hysterectomy History of left heart catheterization (LHC) (~08/01/18) History of melanoma excision Social History Smoking Status: Never smoker alcohol intake: never substance use type: does not use caffeine: No ROS <LEILANI Russ - Last Filed: 03/18/22 15:01> ROS ED ROS Narrative Constitutional: Negative for weight loss, weakness. Positive fever and chills Eyes: Negative for vision loss, vision change, double vision ENT: Negative for any sore throat, ear pain, congestion Cardiovascular: Negative for any chest pain, tightness, palpitations Respiratory: Negative for any sputum production, hemoptysis. positive for cough, dyspnea, dyspnea on exertion, orthopnea Gastrointestinal: Negative for any abdominal pain, nausea, vomiting, diarrhea, constipation, blood in stool, blood in vomit : Negative for any urinary frequency, dysuria, retention, blood in urine Muscle skeletal: Negative for any muscle joint pain, stiffness, myalgias, arthralgias, neck pain, back pain Neurological: Negative for any headache, syncope, numbness or tingling, dizziness Skin: Negative for any rashes, lumps, itching, abrasions, lacerations Psychiatric: Negative for any depression, anxiety, stress, suicidal ideation, homicidal ideation Hematologic: Negative for any easy bruising, excessive bruising, easy bleeding Allergies: Negative for any eczema, hives, rash EXAM <LEILANI Russ - Last Filed: 03/18/22 15:01> Physical Exam Narrative Exam Narrative: Vital signs reviewed. Patient was hypoxic in triage 88 % on exertion. Patient resting in bed on room air was 98% HEET: Head normocephalic atraumatic, TMs clear bilaterally. Posterior pharynx is clear, moist mucous membranes. Nares clear bilaterally. Neck: Supple with no lymphadenopathy or tenderness. No signs of meningismus, negative jolt sign. Cardiac: Regular rate and rhythm no murmurs gallops or rubs, equal peripheral pulses bilaterally. Respiratory: Lungs clear to auscultation bilaterally. No chest tenderness. Abdomen: Soft, nontender, nondistended. No abdominal bruit or pulsatile masses. No hepatosplenomegaly Extremities: No peripheral edema, no signs of gross trauma or deformity. Active full range of motion of all extremities. Neuro: Cranial nerves II through XII intact, no focal neurological deficits. Skin: Clean dry and intact with no rash, purpura, petechiae, vesicles or pustules. Backs/flank: No CVA tenderness, no midline spinal tenderness, no deformity. Psych: Normal mood and affect. No SI, HI or acute psychosis. Const Vital Signs: 03/18/22 14:23 03/18/22 14:33 03/18/22 14:36 Temperature 96.6 F L 96.6 F L Temperature Source Temporal Temporal Pulse Rate 106 H 115 H Respiratory Rate 20 H 20 H Respiratory Effort Normal Non-Labored Respiratory Pattern Normal Blood Pressure 175/105 H 144/91 H Blood Pressure Mean 128 108 Pulse Ox 88 98 Oxygen Delivery Method Room Air Room Air Room Air 03/18/22 16:20 Temperature Temperature Source Pulse Rate 98 Respiratory Rate 18 Respiratory Effort Respiratory Pattern Blood Pressure 122/82 H Blood Pressure Mean 95 Pulse Ox 95 Oxygen Delivery Method Room Air <Dr. Ren Whitt MD - Last Filed: 03/18/22 16:56> Physical Exam Const Vital Signs: 03/18/22 14:23 03/18/22 14:33 03/18/22 14:36 Temperature 96.6 F L 96.6 F L Temperature Source Temporal Temporal Pulse Rate 106 H 115 H Respiratory Rate 20 H 20 H Respiratory Effort Normal Non-Labored Respiratory Pattern Normal Blood Pressure 175/105 H 144/91 H Blood Pressure Mean 128 108 Pulse Ox 88 98 Oxygen Delivery Method Room Air Room Air Room Air 03/18/22 16:20 Temperature Temperature Source Pulse Rate 98 Respiratory Rate 18 Respiratory Effort Respiratory Pattern Blood Pressure 122/82 H Blood Pressure Mean 95 Pulse Ox 95 Oxygen Delivery Method Room Air MDM <LEILANI Russ - Last Filed: 03/18/22 15:01> [facility] Lab Data Labs: Laboratory Results - last 24 hr 03/18/22 03/18/22 03/18/22 14:55 14:55 14:55 WBC 4.5 RBC 5.34 Hgb 15.7 H Hct 49.3 H MCV 92.3 MCH 29.4 MCHC 31.8 L RDW Std Deviation 45.9 H RDW Coeff of Tavo 13.5 Plt Count 147 L MPV 10.7 Immature Gran % (Auto) 0.400 Neut % (Auto) 71.1 H Lymph % (Auto) 18.1 L Linn % (Auto) 8.9 Eos % (Auto) 1.1 Baso % (Auto) 0.4 Absolute Neuts (auto) 3.2 Absolute Lymphs (auto) 0.81 L Nucleated RBC % 0 Sodium 136 Potassium 4.2 Chloride 104 Carbon Dioxide 25.0 Anion Gap 7 BUN 17 Creatinine 1.42 H Estim Creat Clear Calc 30.33 Est GFR (MDRD) Af Amer 46 L Est GFR (MDRD) Non-Af 38 L BUN/Creatinine Ratio 12.0 Glucose 233 H Calcium 9.5 Troponin I High Sens 5 B-Natriuretic Peptide 37.7 Radiography Diagnostic Testing: Clinical Impression(s) from Imaging Studies Chest X-Ray 03/18/22 15:08 IMPRESSION: Mild cardiomegaly. The lungs are clear. Electronically Signed: Demetrio Sauer MD at 15:22 EDT , EKG Atrial fibrillation: Attestation: I personally reviewed and interpreted this EKG as follows: Interpretation: Atrial Fibrillation Comments: Atrial fibrillation heart rate 105 bpm, QRS duration 72 ms, no acute ST elevation, no acute infarct noted <Dr. Ren Whitt MD - Last Filed: 03/18/22 16:56> MDM MDM Narrative Medical decision making narrative: Seen and evaluated independently and in conjunction with [employer]. Agree with notes above unless documented otherwise. Patient with dyspnea for the past 3 to 4 days, nonproductive cough, initially fevers and chills but no longer having any of that, but malaised. She sleeps in a recliner so unknown if she has orthopnea but exertion definitely makes her dyspnea worse. No chest pain but she does have some mid back pain, nonpleuritic. No new leg swelling. History of A. fib that was asymptomatic, she is irregular now and in A. fib without any acute injury pattern on the EKG. She has had no palpitations or racing heartbeat in the last several days to suggest that A. fib is primarily causing this. Work-up will include cardiac etiologies as well as infectious. Work-up is consistent with COVID and is otherwise essentially normal, including the chest x-ray. On the initial vital signs her pulse ox was reading 88%, but throughout her stay in the ED, she was not hypoxic satting well into the 90s, 95 to 98%. For this reason we ambulated her, she was only very mildly dyspneic and she did not saturate below 94%. Cardiac work-up is negative/unremarkable. For these reasons I think she can be discharged home to quarantine and continue washing pulse oximetry if she can get a meter, she has risk being cardiac and hypertension and obesity and her age. She is also unvaccinated. She therefore qualifies for Paxlovid, and needs to decrease her apixaban dose to 2.5 mg twice daily according to the [place] interaction database. Lab Data Attestation: I reviewed the patient's lab results. Labs: Laboratory Results - last 24 hr 03/18/22 03/18/22 03/18/22 14:55 14:55 14:55 WBC 4.5 RBC 5.34 Hgb 15.7 H Hct 49.3 H MCV 92.3 MCH 29.4 MCHC 31.8 L RDW Std Deviation 45.9 H RDW Coeff of Tavo 13.5 Plt Count 147 L MPV 10.7 Immature Gran % (Auto) 0.400 Neut % (Auto) 71.1 H Lymph % (Auto) 18.1 L Linn % (Auto) 8.9 Eos % (Auto) 1.1 Baso % (Auto) 0.4 Absolute Neuts (auto) 3.2 Absolute Lymphs (auto) 0.81 L Nucleated RBC % 0 Sodium 136 Potassium 4.2 Chloride 104 Carbon Dioxide 25.0 Anion Gap 7 BUN 17 Creatinine 1.42 H Estim Creat Clear Calc 30.33 Est GFR (MDRD) Af Amer 46 L Est GFR (MDRD) Non-Af 38 L BUN/Creatinine Ratio 12.0 Glucose 233 H Calcium 9.5 Troponin I High Sens 5 B-Natriuretic Peptide 37.7 Radiography Chest X-Ray - ED: 1 View, Read by ED Physician, No Acute Disease and No Infiltrates Diagnostic Testing: Clinical Impression(s) from Imaging Studies Chest X-Ray 03/18/22 15:08 IMPRESSION: Mild cardiomegaly. The lungs are clear. Electronically Signed: Demetrio Sauer MD at 15:22 EDT , EKG Atrial fibrillation: Attestation: I personally reviewed and interpreted this EKG as follows: Discharge Plan Triage Chief Complaint: Shortness of Breath ED Midlevel Provider: Gilberto Morales ED Provider: Ren Whitt Dx/Rx/DC Orders Clinical Impression: COVID-19, Atrial fibrillation, Dyspnea Instructions: Coronavirus Disease 2019 (COVID-19): Caring for Yourself or Others Prescriptions: New albuterol sulfate [Ventolin HFA] 90 mcg/actuation HFA aerosol inhaler 1 - 2 puff inhalation Q4H PRN PRN (Reason: Wheezing) Qty: 1 0RF Paxlovid (EUA) 300 mg (150 mg x 2)-100 mg tablet See Rx Instructions .ROUTE .COMPLEX Qty: 30 0RF Rx Instructions: take TWO 150 mg tablets of nirmatrelvir with ONE 100 mg tablet of ritonavir twice daily for 5 days Continued cholecalciferol (vitamin D3) 1,000 unit tablet 500 unit PO BID lutein 20 mg tablet 20 mg PO DAILY glucosamine-chondroitin 900 mg tablet 900 mg PO DAILY Centrum Silver Women 8 mg iron-400 mcg-300 mcg tablet 1 tab PO DAILY ibuprofen 200 mg tablet 200 mg PO TID-QID PRN (Reason: Pain) omega-3 fatty acids 1,000 mg capsule 1,000 mg capsule 1,000 mg PO BID aspirin [Adult Low Dose Aspirin] 81 mg tablet,delayed release (DR/EC) 81 mg PO DAILY lisinopril 20 mg tablet 20 mg PO DAILY Qty: 90 3RF furosemide 20 mg tablet 20 mg PO DAILY Qty: 90 3RF spironolactone 25 mg tablet 25 mg PO DAILY Qty: 90 3RF metoprolol tartrate 50 mg tablet 50 mg PO BID Qty: 180 4RF Changed Eliquis 5 mg tablet 2.5 mg PO BID Qty: 60 12RF Rx Instructions: May go back to regular dose (5mg 2x/day) starting on March 26, 2022 Primary Care Provider: Care Physician,No Primary Referrals: Care Physician,No Primary [Primary Care Provider] - Doctor,Your [STAFF PHYSICIAN] - As Needed Activity Restrictions/Additional Instructions: Try to get a home portable pulse oximeter and closely watch your oxygen levels periodically. If you stay below 90% for more than a minute or so, and/or you are feeling like your breathing is getting worse, return to the emergency department for further evaluation. Disposition Disposition: Home, Self Care
[2022-03-18 15:06] LABS: Absolute Lymphocyte Count 0.81 X10^3/uL (0.83-4.51); Absolute Neutrophil Count 3.2 X10^3/uL (2.0-7.7); Basophil# 0.02 X10^3/uL; Basophil% 0.4 % (0-1); Eosinophil# 0.05 X10^3/uL; Eosinophils% 1.1 % (0-5); Hematocrit 49.3 % (37-47); Hemoglobin 15.7 g/dL (12.0-15.0); Lymphocyte # 0.81 X10^3/ul (0.83-4.51); Lymphocyte % 18.1 % (19-41); Mean Corp Hgb Conc 31.8 g/dL (32-36); Mean Corpuscular Hgb 29.4 pg (27.0-32.0); Mean Corpuscular Volume 92.3 fL (81-99); Mean Platelet Vol. 10.7 fl (6.2-12.0); Monocyte% 8.9 % (0-10); NRBC Flagged by Analyzer 0 % (0-5); Neutrophil # 3.17 X10^3/uL (2.7-7.7); Neutrophil % 71.1 % (47-70); Platelet Count 147 K/mm3 (150-450); RBC Distribution Width CV 13.5 % (11.6-14.6); RBC Distribution Width SD 45.9 fl (35.1-43.9); Red Blood Count 5.34 M/mm3 (4.2-5.4); White Blood Count 4.5 K/mm3 (4.4-11.0)
--- NOTE | 2022-03-18 15:08 | RAD_ITS ---
STUDY: X-RAY CHEST REASON FOR EXAM: Female, 77 years old. Shortness of breath. TECHNIQUE: Single AP portable view of the chest. COMPARISON: Comparison is made with prior study dated 07/25/2018. FINDINGS: EKG electrodes are seen. The lungs are clear and expanded. There is no demonstrated pleural abnormality. There is mild cardiac enlargement. Normal mediastinum and elenita. Normal visualized pulmonary arteries. There is atherosclerotic calcification of the aortic arch with tortuosity. There are diffuse degenerative changes of the visualized thoracic spine. Normal visualized ribs, clavicles, and shoulders. There is no demonstrated abnormality of the visualized soft tissue structures of the upper abdomen. RAD/Chest 1 View (Portable) IMPRESSION: Mild cardiomegaly. The lungs are clear. Electronically Signed: Demetrio Sauer MD at 15:22 EDT ,
[2022-03-18 15:24] LABS: Anion Gap 7 (5-15); BUN 17 mg/dL (7-18); Calcium,Total 9.5 mg/dL (8.5-10.1); Chloride 104 mmol/L (98-107); Creatinine, Serum 1.42 mg/dL (0.55-1.02); EST Glomerular Filtration Rate 38 mL/min (>60); Est Glom Filt Rate - Afr Amer 46 mL/min (>60); Estimated Creatinine Clearance 30.33 ml/min; Glucose 233 mg/dL (74-106); Potassium 4.2 mmol/L (3.5-5.1); Sodium Level 136 mmol/L (136-145); Troponin-I HS 5 pg/mL (3.0-54.0)
[2022-03-18 15:25] LABS: BNP,B-Type NATRIURETIC PEPTIDE 37.7 pg/mL (0-100)
[2022-03-18 16:20] VITALS: BP 122/82; PULSE 98; RESP 18; O2SAT 95
[2022-03-18 16:29] VITALS: O2SAT 95
[2022-03-18 17:05] VITALS: BP 126/106; PULSE 98; RESP 20; O2SAT 92
== END 2022-03-18 17:06 | disposition home or self-care (01) ==
PROVIDERS: Nurse Practitioner; Emergency Provider Emergency Medicine; Visit Provider Emergency Medicine
DX: U07.1 COVID-19 (principal); I48.91 Unspecified atrial fibrillation; I10 Essential (primary) hypertension; E78.5 Hyperlipidemia, unspecified; I25.10 Atherosclerotic heart disease of native coronary artery without angina pectoris; R06.00 Dyspnea, unspecified; Z79.01 Long term (current) use of anticoagulants; R06.02 Shortness of breath
CPT/HCPCS: 71045; 80048; 83880; 84484; 85025; 87428; 93005; 99284; A4216

== ENCOUNTER → 2022-06-14 | Outpatient (CLI) | payer MEDICARE, OTHER, SELFPAY | END | disposition home or self-care (01) | LOC: PSN 08:31 | PROVIDERS: Referring Provider Internal Medicine Cardiovascular Disease; Visit Provider Internal Medicine Cardiovascular Disease | DX: I48.91 Unspecified atrial fibrillation (principal); I48.92 Unspecified atrial flutter | CPT/HCPCS: 93225; 93226 ==

== ENCOUNTER → 2022-11-15 | Outpatient (CLI) | payer MEDICARE, OTHER, SELFPAY ==
[2022-11-15 10:57] LABS: Absolute Lymphocyte Count 1.49 X10^3/uL (0.83-4.51); Absolute Neutrophil Count 8.3 X10^3/uL (2.0-7.7); Basophil# 0.05 X10^3/uL; Basophil% 0.5 % (0-1); Eosinophil# 0.12 X10^3/uL; Eosinophils% 1.1 % (0-5); Hematocrit 49.1 % (37-47); Hemoglobin 15.6 g/dL (12.0-15.0); Lymphocyte # 1.49 X10^3/ul (0.83-4.51); Lymphocyte % 14.2 % (19-41); Mean Corp Hgb Conc 31.8 g/dL (32-36); Mean Corpuscular Hgb 29.8 pg (27.0-32.0); Mean Corpuscular Volume 93.7 fL (81-99); Mean Platelet Vol. 10.6 fl (6.2-12.0); Monocyte# 0.54 X10^3/uL; Monocyte% 5.1 % (0-10); NRBC Flagged by Analyzer 0 % (0-5); Neutrophil # 8.28 X10^3/uL (2.7-7.7); Neutrophil % 78.7 % (47-70); Platelet Count 226 K/mm3 (150-450); RBC Distribution Width CV 13.1 % (11.6-14.6); RBC Distribution Width SD 44.8 fl (35.1-43.9); Red Blood Count 5.24 M/mm3 (4.2-5.4); White Blood Count 10.5 K/mm3 (4.4-11.0)
[2022-11-15 11:23] LABS: BNP,B-Type NATRIURETIC PEPTIDE 55.4 pg/mL (0-100)
[2022-11-15 11:34] LABS: AST(SGOT) 18 U/L (15-37); Alanine Aminotransfer ALT/SGPT 34 U/L (13-56); Albumin, Serum 3.4 g/dL (3.2-5.0); Alkaline Phosphatase 89 U/L (45-117); Anion Gap 8 (5-15); BUN 32 mg/dL (7-18); BUN/Creat Ratio 17.3 RATIO (10-20); Bilirubin, Direct 0.16 mg/dL (0.00-0.30); Calcium,Total 10.2 mg/dL (8.5-10.1); Chloride 99 mmol/L (98-107); Cholesterol 231 mg/dL (200); Creatinine, Serum 1.85 mg/dL (0.55-1.02); EST Glomerular Filtration Rate 28 mL/min (>60); Est Glom Filt Rate - Afr Amer 34 mL/min (>60); Globulin 4.1 g/dL (2.2-4.2); Glucose 257 mg/dL (74-106); High Density Lipoprotein 49 mg/dL; Potassium 4.1 mmol/L (3.5-5.1); Protein, Total 7.5 g/dL (6.4-8.2); Sodium Level 134 mmol/L (136-145); Thyroid Stim Hormone (TSH) 2.35 uIU/mL (0.358-3.74); Triglycerides 233 mg/dL; Very Low Density Lipoprotein 47 mg/dL (5-40)
== END | disposition home or self-care (01) ==
LOC: LAB 10:22
PROVIDERS: Referring Provider Nurse Practitioner Gerontology; Visit Provider Nurse Practitioner Gerontology
DX: R06.00 Dyspnea, unspecified (principal); R53.83 Other fatigue; E78.5 Hyperlipidemia, unspecified
CPT/HCPCS: 36415; 80048; 80061; 80076; 83880; 84443; 85025

== ENCOUNTER → 2022-12-02 | Outpatient (CLI) | payer MEDICARE, OTHER, SELFPAY ==
[2022-12-02 12:59] LABS: Anion Gap 8 (5-15); BUN 21 mg/dL (7-18); BUN/Creat Ratio 16.2 RATIO (10-20); Calcium,Total 9.8 mg/dL (8.5-10.1); Chloride 105 mmol/L (98-107); EST Glomerular Filtration Rate 42 mL/min (>60); Est Glom Filt Rate - Afr Amer 51 mL/min (>60); Glucose 250 mg/dL (74-106); Potassium 4.4 mmol/L (3.5-5.1); Sodium Level 138 mmol/L (136-145)
== END | disposition home or self-care (01) ==
LOC: LAB 12:13
PROVIDERS: Referring Provider Nurse Practitioner Gerontology; Visit Provider Nurse Practitioner Gerontology
DX: I10 Essential (primary) hypertension (principal)
CPT/HCPCS: 36415; 80048

== ENCOUNTER → 2022-12-16 | Outpatient (CLI) | payer MEDICARE, OTHER, SELFPAY ==
[2022-12-16 12:51] LABS: Anion Gap 10 (5-15); BUN 21 mg/dL (7-18); BUN/Creat Ratio 14.8 RATIO (10-20); Calcium,Total 10.1 mg/dL (8.5-10.1); Chloride 101 mmol/L (98-107); Creatinine, Serum 1.42 mg/dL (0.55-1.02); EST Glomerular Filtration Rate 38 mL/min (>60); Est Glom Filt Rate - Afr Amer 46 mL/min (>60); Glucose 258 mg/dL (74-106); Potassium 4.4 mmol/L (3.5-5.1); Sodium Level 136 mmol/L (136-145)
== END | disposition home or self-care (01) ==
LOC: LAB 11:22
PROVIDERS: Referring Provider Physician Assistant Medical; Visit Provider Physician Assistant Medical
DX: R06.00 Dyspnea, unspecified (principal)
CPT/HCPCS: 36415; 80048

== ENCOUNTER → 2023-05-13 | Outpatient (CLI) | payer MEDICARE, OTHER, SELFPAY ==
[2023-05-13 11:32] LABS: AST(SGOT) 17 U/L (15-37); Alanine Aminotransfer ALT/SGPT 25 U/L (13-56); Albumin, Serum 3.4 g/dL (3.2-5.0); Alkaline Phosphatase 97 U/L (45-117); Bilirubin, Direct 0.28 mg/dL (0.00-0.30); Cholesterol 122 mg/dL (200); Globulin 3.7 g/dL (2.2-4.2); High Density Lipoprotein 60 mg/dL; Protein, Total 7.1 g/dL (6.4-8.2); Triglycerides 161 mg/dL; Very Low Density Lipoprotein 32 mg/dL (5-40)
== END | disposition home or self-care (01) ==
LOC: LAB 10:14
PROVIDERS: Referring Provider Nurse Practitioner Gerontology; Visit Provider Nurse Practitioner Gerontology
DX: E78.5 Hyperlipidemia, unspecified (principal)
CPT/HCPCS: 36415; 80061; 80076

== ENCOUNTER 2023-11-23 09:57 | Emergency (ER) | payer MEDICARE, OTHER, SELFPAY ==
[2023-11-23 09:58] VITALS: BP 157/99; PULSE 80; RESP 14; TEMP 36.1; O2SAT 99
[2023-11-23 10:14] VITALS: PULSE 70; RESP 24; O2SAT 97
--- NOTE | 2023-11-23 10:33 | RAD_ITS ---
INDICATION: Cough, GILL, intermittent wheezing EXAMINATION/TECHNIQUE: X-RAY - XR Chest 2 Views COMPARISON: Prior study dated: 03/18/2022. FINDINGS: LINES/DEVICES: New left-sided single chamber cardiac pacer device in place. LUNGS: No consolidation, edema or effusion. No pneumothorax. MEDIASTINUM AND CARDIOVASCULAR STRUCTURES: Borderline enlargement of the cardiac silhouette. BONES AND SOFT TISSUES: Stable soft tissues and osseous structures. RAD/Chest PA and Lateral IMPRESSION: 1. Borderline enlargement of the cardiac silhouette. 2. No active pulmonary disease. Electronically Signed: Shaggy Velazquez MD at 10:44 EST ,
[2023-11-23 10:36] LABS: Absolute Lymphocyte Count 1.41 X10^3/uL (0.83-4.51); Absolute Neutrophil Count 3.9 X10^3/uL (2.0-7.7); Basophil# 0.02 X10^3/uL; Basophil% 0.3 % (0-1); Eosinophil# 0.11 X10^3/uL; Eosinophils% 1.9 % (0-5); Hematocrit 50.6 % (37-47); Hemoglobin 15.8 g/dL (12.0-15.0); Lymphocyte # 1.41 X10^3/ul (0.83-4.51); Lymphocyte % 23.9 % (19-41); Mean Corp Hgb Conc 31.2 g/dL (32-36); Mean Corpuscular Hgb 27.5 pg (27.0-32.0); Mean Platelet Vol. 10.9 fl (6.2-12.0); Monocyte# 0.46 X10^3/uL; Monocyte% 7.8 % (0-10); NRBC Flagged by Analyzer 0 % (0-5); Neutrophil # 3.89 X10^3/uL (2.7-7.7); Neutrophil % 65.8 % (47-70); Platelet Count 167 K/mm3 (150-450); RBC Distribution Width CV 13.8 % (11.6-14.6); RBC Distribution Width SD 44.7 fl (35.1-43.9); Red Blood Count 5.75 M/mm3 (4.2-5.4); White Blood Count 5.9 K/mm3 (4.4-11.0)
[2023-11-23 10:46] LABS: Anion Gap 9 (5-15); BUN 17 mg/dL (7-18); BUN/Creat Ratio 14.7 RATIO (10-20); Calcium,Total 9.7 mg/dL (8.5-10.1); Chloride 105 mmol/L (98-107); Creatinine, Serum 1.16 mg/dL (0.55-1.02); EST Glomerular Filtration Rate 48 mL/min (>60); Est Glom Filt Rate - Afr Amer 58 mL/min (>60); Glucose 311 mg/dL (74-106); Potassium 4.2 mmol/L (3.5-5.1); Sodium Level 140 mmol/L (136-145)
--- NOTE | 2023-11-23 10:55 | EDS_ITS ---
HPI History of Present Illness Chief Complaint: Cough Detail of Chief Complaint: Cough, dyspnea on exertion and intermittent wheezing Informant: patient Onset/Context/Timing Onset: Weeks (1 week ago) Context: Sudden Onset Timing: Continuous and Waxes and wanes Quality: Dyspnea, nonproductive cough, intermittent wheezing Location: Upper respiratory Current Severity: Mild Worsened by: Activity Relieved by: Nothing Associated Symptoms Associated Symptoms: Sore throat Narrative Narrative: Patient is a 78-year-old female who presents with upper respiratory symptoms started approximate 1 week ago. She presents because she has gotten worse. She states she feels things have loosened up in her chest but she still has a nonproductive cough. She is intermittent wheezing. She denies dyspnea or dyspnea with exertion. She denies history of congestive heart failure. She denies leg pain, swelling or discoloration. She has no history of VTE. She does report subjective fever with chills. She does report headache. Denies double vision blurred vision neck pain or neck stiffness. She denies auditory symptoms. She denies chest discomfort, orthopnea or PND. She denies abdominal pain, nausea, vomiting or diarrhea. She denies urologic symptoms. Patient is concerned for RSV. When asked why she was concerned for RSV her response was I do not know . Prior similar symptoms: Yes Recent Illness/Hospitalization: No PFSH PFSH Medical History Abnormal stress test Atherosclerotic heart disease of [place] coronary artery without angina pectoris Atrial fibrillation and flutter Essential hypertension History of glaucoma Hyperlipemia Nonrheumatic aortic (valve) stenosis Premature atrial contraction Premature ventricular contraction Home Medications antiarthritic combination no.2 900 mg tablet (glucosamine-chondroitin) 900 mg PO DAILY 06/28/18 [History Last Taken Unknown] ibuprofen 200 mg tablet 200 mg PO TID-QID PRN Pain 06/28/18 [History Last Taken Unknown] lutein 20 mg tablet 20 mg PO DAILY 06/28/18 [History Last Taken Unknown] [id number] 8 mg-folic 400 mcg-K 50 mcg-lutein 300 mcg tablet (Centrum Silver Women) 1 tab PO DAILY 06/28/18 [History Last Taken Unknown] cholecalciferol (vitamin D3) 25 mcg (1,000 unit) tablet 500 unit PO BID 06/29/18 [History Last Taken Unknown] aspirin 81 mg tablet,delayed release (Adult Low Dose Aspirin) 81 mg PO DAILY 07/18/18 [History Last Taken 09/26/18] omega-3 fatty acids 1,000 mg capsule (Fish Oil Concentrate) 1,000 mg PO BID 08/30/18 [History Last Taken Unknown] cinnamon bark 500 mg capsule (Cinnamon) 500 mg PO DAILY 11/15/22 [History Last Taken Unknown] latanoprost 0.005 % eye drops 1 drp ophthalmic (eye) DAILY 11/15/22 [History Last Taken Unknown] apixaban 5 mg tablet (Eliquis) 5 mg PO BID #180 tabs 12/09/22 [Rx Last Taken Unknown] atorvastatin 20 mg tablet See Rx Instructions .Route .COMPLEX #30 tabs 12/13/22 [Rx Last Taken Unknown] furosemide 20 mg tablet See Rx Instructions .Route .COMPLEX PRN 05/13/23 [History Last Taken Unknown] spironolactone 25 mg tablet 25 mg PO DAILY 05/13/23 [History Last Taken Unknown] metoprolol succinate 50 mg tablet,extended release 24 hr 50 mg PO DAILY #90 tabs 11/11/23 [Rx Last Taken Unknown] lisinopril 20 mg tablet 10 mg (1/2 x 20 mg) PO DAILY #90 tabs 11/14/23 [Rx Last Taken Unknown] metformin 500 mg tablet 500 mg PO DAILY #30 tabs 11/23/23 [Rx Last Taken Unknown] Allergy/AdvReac Type Severity Reaction Status Date / Time bacitracin Allergy Severe Blisters Verified 11/23/23 10:00 [From Neosporin ([id number])] erythromycin base Allergy Severe Rash Verified 11/23/23 10:00 neomycin Allergy Severe Blisters Verified 11/23/23 10:00 [From Neosporin ([id number])] polymyxin B Allergy Severe Blisters Verified 11/23/23 10:00 [From Neosporin ([id number])] sulfamethoxazole Allergy Severe Rash Verified 11/23/23 10:00 [From Bactrim] trimethoprim [From Bactrim] Allergy Severe Rash Verified 11/23/23 10:00 Family History Mother Congestive heart failure Father CAD (coronary artery disease) Myocardial infarction Surgical History History of basal cell carcinoma excision History of hysterectomy History of left heart catheterization (LHC) (~08/01/18) History of melanoma excision Social History Smoking Status: Never smoker alcohol intake: never substance use type: does not use caffeine: No ROS ROS ED Constitutional Constitutional ED: Reports chills and subjective; Denies fever(s) or sweats Eyes Eyes: Denies blurry vision, change in vision or diplopia ENT ENT ED: Reports rhinorrhea and sore throat; Denies ear pain Cardiovascular Cardiovascular: Denies chest pain, orthopnea, palpitations, paroxysmal nocturnal dyspnea or racing heartbeat Respiratory/Chest Respiratory/Chest: Reports cough and dyspnea on exertion; Denies orthopnea, paroxysmal nocturnal dyspnea or sputum Gastrointestinal Gastrointestinal: Denies abdominal pain, diarrhea, nausea or vomiting Musculoskeletal Musculoskeletal: Denies arthralgias or myalgias Integumentary Denies abscess or rash Neurologic Neurologic: Reports weakness; Denies paresthesias Endocrine Endocrinology: Denies cold intolerance or heat intolerance Hematologic/Lymphatic Hematologic/Lymphatic: Reports systems reviewed and no addt'l complaints, except as documented EXAM Physical Exam Const Vital Signs: 11/23/23 09:58 11/23/23 10:14 11/23/23 11:53 Temperature 97.0 F L 98.4 F Temperature Source Temporal Oral Pulse Rate 80 70 71 Respiratory Rate 14 24 H 16 Blood Pressure 157/99 H 156/93 H Blood Pressure Mean 118 114 Pulse Ox 99 97 97 Oxygen Delivery Method Room Air Room Air Room Air Positive well nourished, well developed and obese Constitutional Narrative: Patient appears ill. She becomes dyspneic getting onto the bed. General Appearance ED: well developed; Negative for cyanotic, diaphoretic, NAD or pallor Nutritional Appearance: obese HEENT Reports dry mucous membranes HEENT Narrative: Head is atraumatic, cephalic. Ears normal. Nares patent with slight discharge. Posterior pharynx unremarkable. Mouth ED: Yes dry mucous membranes Mouth: dry mucous membranes Eyes PERRL and EOMs intact bilaterally General Eye ED: Negative for pale conjunctiva or scleral icterus Neck no lymphadenopathy, supple and no JVD Chest Wall inspection of chest normal and palpation of chest normal Resp normal respiratory effort and clear to auscultation bilaterally Cardio regular rate, regular rhythm, S1 normal heart sound, S2 normal heart sound and no murmurs GI normal to inspection, nondistended, normoactive bowel sounds, non-tender, non- distended and no masses; Negative for hepatosplenomegaly Palpation: soft Back/Spine no CVA tenderness Extremity normal to inspection General Extremety ED: Yes edema; Negative for tenderness General Extremity: edema Neuro oriented x3, CN's II-XII intact bilaterally and no sensory deficits noted Sensorium / Orientation: alert; Negative for orientation impaired, lethargic or stuporous Psych mental status grossly normal Skin no rashes or lesions noted, no wounds and skin turgor normal General Skin Exam: elasticity normal; Negative for jaundice or pallor MDM MDM MDM Narrative Medical decision making narrative: Patient presents with flulike symptoms. Will assess for RSV, COVID and influenza. Will obtain chest x-ray to assess for pneumonia. CBC to assess white count differential as well as rule out anemia. Electrolytes to assess for endorgan dysfunction. Lab Data Attestation: I reviewed the patient's lab results. Lab results narrative: CBC is remarkable and elevated H&H of 15.8 and 50.6. Indices are normal. Differential is normal. Basic metabolic panel reveals elevated creatinine of 1.16 with an estimated GFR of 48. BUN to creatinine ratio is 15:1. Glucose is elevated 311 with a normal CO2 anion gap. Review of patient's records indicates she is not diabetic. Will verify if she is or is not. Review of her medication list would indicate she is not. Rapid antigen for COVID, influenza and RSV was positive for COVID-19 infection. Labs: Laboratory Results - last 24 hr 11/23/23 10:20 WBC 5.9 RBC 5.75 H Hgb 15.8 H Hct 50.6 H MCV 88.0 MCH 27.5 MCHC 31.2 L RDW Std Deviation 44.7 H RDW Coeff of Tavo 13.8 Plt Count 167 MPV 10.9 Immature Gran % (Auto) 0.300 Neut % (Auto) 65.8 Lymph % (Auto) 23.9 [place] % (Auto) 7.8 Eos % (Auto) 1.9 Baso % (Auto) 0.3 Absolute Neuts (auto) 3.9 Absolute Lymphs (auto) 1.41 Nucleated RBC % 0 Sodium 140 Potassium 4.2 Chloride 105 Carbon Dioxide 26.0 Anion Gap 9 BUN 17 Creatinine 1.16 H Est GFR (MDRD) Af Amer 58 L Est GFR (MDRD) Non-Af 48 L BUN/Creatinine Ratio 14.7 Glucose 311 H Calcium 9.7 Radiography Chest X-Ray - ED: 2 View and Read by ED Physician (Patient has cardiomegaly. Cardiac silhouette size normal. Lung parenchyma mL minimal chronic changes. Perihilar region normal. Osseous trucks is unremarkable any acute pathology. There is no evidence of pneumonia or pneumothorax) Diagnostic Testing: Clinical Impression(s) from Imaging Studies Chest X-Ray 11/23/23 10:33 IMPRESSION: 1. Borderline enlargement of the cardiac silhouette. 2. No active pulmonary disease. 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 She was started on metformin. She was referred to Dr. Sara Hawkins. She also was told she has COVID. She has not been immunized after reviewing risk benefits in light of her multiple medical problems. Discharge Plan Triage Chief Complaint: Cough ED Provider: Misha Clements Dx/Rx/DC Orders Clinical Impression: COVID-19 virus infection, Atherosclerotic heart disease of [place] coronary artery without angina pectoris, Essential hypertension, Hyperlipemia, Dehydration, New onset type 2 diabetes mellitus Instructions: Coronavirus Disease 2019 (COVID-19): Caring for Yourself or Others, ED Hyperglycemia New Poss Diabetes Prescriptions: New metformin 500 mg tablet 500 mg PO DAILY Qty: 30 0RF No Action cholecalciferol (vitamin D3) 1,000 unit tablet 500 unit PO BID lutein 20 mg tablet 20 mg PO DAILY glucosamine-chondroitin 900 mg tablet 900 mg PO DAILY Centrum Silver Women 8 mg iron-400 mcg-300 mcg tablet 1 tab PO DAILY ibuprofen 200 mg tablet 200 mg PO TID-QID PRN (Reason: Pain) omega-3 fatty acids 1,000 mg capsule 1,000 mg capsule 1,000 mg PO BID latanoprost 0.005 % drops 1 drp ophthalmic (eye) DAILY cinnamon bark [Cinnamon] 500 mg capsule 500 mg PO DAILY furosemide 20 mg tablet See Rx Instructions .ROUTE .COMPLEX PRN Dose Instruction: TAKE 1 TABLET BY MOUTH EVERY DAY Rx Instructions: TAKE 1 TABLET BY MOUTH EVERY DAY PRN; spironolactone 25 mg tablet 25 mg PO DAILY metoprolol succinate 50 mg tablet extended release 24 hr 50 mg PO DAILY Qty: 90 3RF aspirin [Adult Low Dose Aspirin] 81 mg tablet,delayed release (DR/EC) 81 mg PO DAILY Eliquis 5 mg tablet 5 mg PO BID Qty: 180 3RF atorvastatin 20 mg tablet See Rx Instructions .ROUTE .COMPLEX Qty: 30 12RF Dose Instruction: TAKE 1 TABLET BY MOUTH AT BEDTIME Rx Instructions: TAKE 1 TABLET BY MOUTH AT BEDTIME lisinopril 20 mg tablet 10 mg PO DAILY Qty: 90 3RF Primary Care Provider: Care Physician,No Primary Referrals: Sara Hawkins MD [Med Staff - Vice President Of Marketing] - 1-2 Weeks Care Physician,No Primary [Primary Care Provider] - Disposition Disposition: Home, Self Care
[2023-11-23 11:53] VITALS: BP 156/93; PULSE 71; RESP 16; TEMP 36.9; O2SAT 97
[2023-11-23 12:38] VITALS: BP 158/78; PULSE 72; RESP 18; TEMP 37.2; O2SAT 99
== END 2023-11-23 12:41 | disposition home or self-care (01) ==
PROVIDERS: Emergency Provider Emergency Medicine; Visit Provider Emergency Medicine
DX: U07.1 COVID-19 (principal); I48.91 Unspecified atrial fibrillation; Z79.899 Other long term (current) drug therapy; E78.5 Hyperlipidemia, unspecified; I10 Essential (primary) hypertension; I25.10 Atherosclerotic heart disease of native coronary artery without angina pectoris; E86.0 Dehydration; Z79.01 Long term (current) use of anticoagulants; Z79.82 Long term (current) use of aspirin; Z90.710 Acquired absence of both cervix and uterus
CPT/HCPCS: 71046; 80048; 85025; 87631; 99284; A4216

== ENCOUNTER → 2023-12-16 | Outpatient (CLI) | payer MEDICARE, OTHER, SELFPAY ==
--- NOTE | 2023-12-16 13:48 | ECHOCS_ITS ---
Reason For Study: Procedure This was a 2D Doppler, Color Flow transthoracic echocardiogram. Contrast injection was performed. Exam performed in department. Left Ventricle Normal LV size. Moderate concentric left ventricular hypertrophy. Left ventricular systolic function is normal. The estimated ejection fraction is 65 %. No regional wall motion abnormalities noted. Right Ventricle Normal RV size. ICD or pacer leads identified within the right ventricle. Normal systolic function. Tricuspid Valve Normal tricuspid valve. Mild tricuspid valve insufficiency. Pulmonary artery systolic pressure is 24 mmHg. Aortic Valve Trisinus/trileaflet aortic valve. Moderate focal aortic valve calcification. Peak aortic valve gradient 25 mmHg. Mean aortic valve gradient 16 mmHg. Mild aortic stenosis. Pulmonic Valve The pulmonic valve is not well visualized. Great Vessels Normal aortic root. The pulmonary artery is normal size. Inferior vena cava collapse with respiration. Pericardium/Pleural No pericardial effusion. Medication Diluted definity 2.5ml given slow IV push to enhance endocardial definition. MMode/2D Measurements & Calculations LVIDd: 3.7 cm IVSd: 1.6 cm LVOT diam: 2.0 cm LVIDs: 2.1 cm LVPWd: 1.6 cm LVOT area: 3.2 cm2 RVDd: 3.8 cm FS: 43.9 % Ao root diam: 3.6 cm LAV(MOD-bp): 56.6 ml LVAd ap4: 23.1 cm2 ACS: 0.81 cm LAV(MOD-bp) Indexed: 25.5 ml/m2 LVLd ap4: 7.2 cm LAV(MOD-sp2): 37.9 ml EDV(MOD-sp4): 62.2 ml LAV(MOD-sp4): 57.3 ml EDV(sp4-el): 63.1 ml LVAs ap4: 13.1 cm2 LVLs ap4: 6.7 cm ESV(MOD-sp4): 21.0 ml ESV(sp4-el): 21.7 ml EF(MOD-sp4): 66.2 % EF(sp4-el): 65.6 % SV(MOD-sp4): 41.2 ml SV(sp4-el): 41.4 ml LA A4 area: 22.7 cm2 LA dimension(2D): 3.5 cm RA A4 area: 17.4 cm2 Doppler Measurements & Calculations MV E max nolan: 123.6 cm/sec Lat Peak E' Nolan: 8.5 cm/sec Med Peak E' Nolan: 7.5 cm/sec E/E' lat: 14.5 E/E' med: 16.4 Ao V2 max: 248.6 cm/sec LV V1 max: 94.2 cm/sec SV(LVOT): 58.5 ml Ao max P.7 mmHg LV V1 max P.6 mmHg Ao V2 mean: 191.9 cm/sec LV V1 mean P.4 mmHg Ao mean P.0 mmHg LV V1 mean: 76.1 cm/sec Ao V2 VTI: 47.9 cm LV V1 VTI: 18.5 cm AV (velocity ratio): 0.39 MITCHEL(I,D): 1.2 cm2 MITCHEL(V,D): 1.2 cm2 PA V2 max: 63.2 cm/sec TR max nolan: 234.1 cm/sec TR max P.9 mmHg ECHO/Echo Complete W/ Contrast Interpretation Summary Normal LV size. Moderate concentric left ventricular hypertrophy. Left ventricular systolic function is normal. The estimated ejection fraction is 65 %. Mean aortic valve gradient 16 mmHg. Mild aortic stenosis. Contrast injection was performed. Ordering Physician: Vanessa Monique Referring Physician: Vanessa Monique Performed By: Camelia Kinsey, QUYNH, RVT
== END | disposition home or self-care (01) ==
LOC: CVS 13:47
PROVIDERS: Referring Provider Nurse Practitioner Gerontology; Visit Provider Nurse Practitioner Gerontology
DX: I35.0 Nonrheumatic aortic (valve) stenosis (principal)
CPT/HCPCS: 93306; Q9957; A4216; C8929

== ENCOUNTER → 2024-06-07 | Outpatient (CLI) | payer MEDICARE, OTHER, SELFPAY ==
[2024-06-07 11:08] LABS: Absolute Lymphocyte Count 1.33 X10^3/uL (0.83-4.51); Absolute Neutrophil Count 7.9 X10^3/uL (2.0-7.7); Basophil# 0.04 X10^3/uL; Basophil% 0.4 % (0-1); Eosinophil# 0.08 X10^3/uL; Eosinophils% 0.8 % (0-5); Hematocrit 49.4 % (37-47); Hemoglobin 15.3 g/dL (12.0-15.0); Lymphocyte # 1.33 X10^3/ul (0.83-4.51); Lymphocyte % 13.5 % (19-41); Mean Corpuscular Hgb 28.3 pg (27.0-32.0); Mean Corpuscular Volume 91.5 fL (81-99); Monocyte# 0.44 X10^3/uL; Monocyte% 4.5 % (0-10); NRBC Flagged by Analyzer 0 % (0-5); Neutrophil # 7.91 X10^3/uL (2.7-7.7); Neutrophil % 80.4 % (47-70); Platelet Count 208 K/mm3 (150-450); RBC Distribution Width CV 13.1 % (11.6-14.6); RBC Distribution Width SD 44.1 fl (35.1-43.9); White Blood Count 9.8 K/mm3 (4.4-11.0)
[2024-06-07 11:38] LABS: AST(SGOT) 19 U/L (15-37); Alanine Aminotransfer ALT/SGPT 24 U/L (13-56); Albumin, Serum 3.3 g/dL (3.2-5.0); Alkaline Phosphatase 98 U/L (45-117); Bilirubin, Direct 0.27 mg/dL (0.00-0.30); Cholesterol 116 mg/dL (200); Globulin 3.9 g/dL (2.2-4.2); High Density Lipoprotein 55 mg/dL; Protein, Total 7.2 g/dL (6.4-8.2); Triglycerides 185 mg/dL; Very Low Density Lipoprotein 37 mg/dL (5-40)
== END | disposition home or self-care (01) ==
LOC: LAB 10:22
PROVIDERS: Referring Provider Internal Medicine Cardiovascular Disease; Visit Provider Internal Medicine Cardiovascular Disease
DX: I25.10 Atherosclerotic heart disease of native coronary artery without angina pectoris (principal); I48.92 Unspecified atrial flutter; I48.91 Unspecified atrial fibrillation
CPT/HCPCS: 36415; 80061; 80076; 85025

== ENCOUNTER → 2025-05-14 | Outpatient (CLI) | payer MEDICARE, OTHER, SELFPAY ==
[2025-05-14 11:55] LABS: Hematocrit 43.7 % (37-47); Hemoglobin 14.4 g/dL (12.0-15.0); Immature Granulocytes Count 0.100 X10^3/uL (0.0-0.0); Mean Corp Hgb Conc 33.0 g/dL (32-36); Mean Corpuscular Volume 90.9 fL (81-99); Mean Platelet Vol. 10.6 fl (6.2-12.0); NRBC Flagged by Analyzer 0 % (0-5); Platelet Count 189 K/mm3 (150-450); RBC Distribution Width CV 13.6 % (11.6-14.6); RBC Distribution Width SD 45.2 fl (35.1-43.9); Red Blood Count 4.81 M/mm3 (4.2-5.4); White Blood Count 8.1 K/mm3 (4.4-11.0)
[2025-05-14 13:16] LABS: AST(SGOT) 21 U/L (<=31); Alanine Aminotransfer ALT/SGPT 20 U/L (<=34); Albumin, Serum 3.9 g/dL (3.4-4.8); Alkaline Phosphatase 85 U/L (35-104); Anion Gap 16 (5-15); BUN 26 mg/dL (4-19); BUN/Creat Ratio 18.9 RATIO (10-20); Calcium,Total 10.5 mg/dL (7.6-11.0); Carbon Dioxide 21.1 mmol/L (21.0-32.0); Chloride 100 mmol/L (98-108); Cholesterol 116 mg/dL (<=200); Globulin 3.0 g/dL (2.2-4.2); Glucose 275 mg/dL (70-99); Low Density Lipoprotein Calc. 36 mg/dL; Potassium 4.4 mmol/L (3.3-5.1); Triglycerides 153 mg/dL; Very Low Density Lipoprotein 31 mg/dL (5-40); cholesterol:hdl ratio screen 2.32
== END | disposition home or self-care (01) ==
LOC: LAB 11:10
PROVIDERS: Referring Provider Internal Medicine Cardiovascular Disease; Visit Provider Internal Medicine Cardiovascular Disease
DX: I48.92 Unspecified atrial flutter (principal); I48.91 Unspecified atrial fibrillation; I25.10 Atherosclerotic heart disease of native coronary artery without angina pectoris
CPT/HCPCS: 36415; 80053; 80061; 85025

== ENCOUNTER → 2025-06-25 | Outpatient (CLI) | payer MEDICARE, OTHER, SELFPAY ==
--- NOTE | 2025-06-25 08:49 | ECHOCS_ITS ---
Reason For Study Reason For Study: Murmur Procedure This was a 2D Doppler, Color Flow transthoracic echocardiogram. Contrast injection was performed. Exam performed in department. Left Ventricle Normal LV size. Left ventricular systolic function is normal. The left ventricular ejection fraction is 60 %. No regional wall motion abnormalities noted. Right Ventricle Normal RV size. Normal systolic function. Atria Normal left atrium. Normal right atrium. Mitral Valve Normal mitral valve. Tricuspid Valve Normal tricuspid valve. Mild (1+) tricuspid valve insufficiency. Pulmonary artery systolic pressure is 30 mmHg. Aortic Valve Trisinus/trileaflet aortic valve. Moderate focal aortic valve calcification. Peak aortic valve gradient 34 mmHg. Mean aortic valve gradient 24 mmHg. Mild to moderate aortic stenosis. Pulmonic Valve Normal pulmonic valve. Great Vessels Normal aortic root. The pulmonary artery is normal size. Inferior vena cava collapse with respiration. Pericardium/Pleural No pericardial effusion. Medication Diluted definity 3ml given slow IV push to enhance endocardial definition. MMode/2D Measurements & Calculations LVIDd: 4.6 cm IVSd: 1.0 cm LVOT diam: 2.1 cm LVIDs: 2.7 cm LVPWd: 1.0 cm RVDd: 4.7 cm FS: 42.5 % LVOT area: 3.3 cm2 Ao root diam: 3.7 cm LAV(MOD-bp): 65.4 ml LVAd ap4: 24.7 cm2 LAV(MOD-bp) Indexed: 29.8 ml/m2 LVLd ap4: 7.1 cm LAV(MOD-sp2): 74.9 ml EDV(MOD-sp4): 70.9 ml LAV(MOD-sp4): 56.0 ml EDV(sp4-el): 72.7 ml LVAs ap4: 15.2 cm2 LVLs ap4: 6.3 cm ESV(MOD-sp4): 30.0 ml ESV(sp4-el): 31.0 ml EF(MOD-sp4): 57.6 % EF(sp4-el): 57.3 % SV(MOD-sp4): 40.8 ml SV(sp4-el): 41.7 ml LA A4 area: 21.6 cm2 SI(MOD-sp4): 18.6 ml/m2 LA dimension(2D): 4.0 cm RA A4 area: 23.6 cm2 TAPSE: 1.5 cm Doppler Measurements & Calculations MV E max nolan: 113.5 cm/sec Lat Peak E' Nolan: 9.4 cm/sec Med Peak E' Nolan: 7.2 cm/sec E/E' lat: 12.1 E/E' med: 15.7 MV V2 max: 125.1 cm/sec Ao V2 max: 291.3 cm/sec LV V1 max: 113.7 cm/sec MV max P.3 mmHg Ao max P.0 mmHg LV V1 max P.2 mmHg MV V2 mean: 64.7 cm/sec Ao V2 mean: 235.0 cm/sec LV V1 mean P.5 mmHg MV mean P.3 mmHg Ao mean P.5 mmHg LV V1 mean: 91.2 cm/sec MV V2 VTI: 28.1 cm Ao V2 VTI: 61.9 cm LV V1 VTI: 25.3 cm AV (velocity ratio): 0.41 MVA(VTI): 3.0 cm2 MITCHEL(I,D): 1.4 cm2 MITCHEL(V,D): 1.3 cm2 SV(LVOT): 84.3 ml PA V2 max: 67.7 cm/sec TR max nolan: 260.3 cm/sec TR max P.2 mmHg ECHO/Echo Complete W/ Contrast Interpretation Summary Normal LV size. Left ventricular systolic function is normal. The left ventricular ejection fraction is 60 %. Pulmonary artery systolic pressure is 30 mmHg. Moderate focal aortic valve calcification. Mean aortic valve gradient 24 mmHg. Mild to moderate aortic stenosis. Contrast injection was performed. Ordering Physician: Avelino Rocha Referring Physician: Avelino Rocha Performed By: Camelia Kinsey RDCS, RVT
== END | disposition home or self-care (01) ==
LOC: CVS 08:45
PROVIDERS: Referring Provider Internal Medicine Cardiovascular Disease; Visit Provider Internal Medicine Cardiovascular Disease
DX: I35.0 Nonrheumatic aortic (valve) stenosis (principal)
CPT/HCPCS: 93306; Q9957; A4216; C8929